=== PATIENT | female | born 1950 | race Caucasian/White ===

== ENCOUNTER → 2020-01-25 | Outpatient (CLI) | payer MEDICARE ==
[~2020-01-25] MED LIST: ASPI81TA45 PO; ESCI20TA PO; HYDR25TA6 PO; LEVO137T3 PO; METO-99 PO; NITR0.4T41 SL; SIMV20TA19 PO; TICA90TA PO
== END | disposition home or self-care (01) ==
LOC: CFH 10:17
PROVIDERS: ATTEND Internal Medicine Cardiovascular Disease
DX: I08.0 Rheumatic disorders of both mitral and aortic valves (principal); I11.9 Hypertensive heart disease without heart failure; I25.810 Atherosclerosis of coronary artery bypass graft(s) without angina pectoris
CPT/HCPCS: 93306

== ENCOUNTER → 2020-01-27 | Outpatient (CLI) | payer MEDICARE ==
[~2020-01-27] MED LIST changes: +REGADENOSON 0.4 MG/5 ML SYRINGE ONE
== END | disposition home or self-care (01) ==
LOC: CFH 07:24
PROVIDERS: ATTEND Internal Medicine Cardiovascular Disease
DX: I25.9 Chronic ischemic heart disease, unspecified (principal); I10 Essential (primary) hypertension; I25.810 Atherosclerosis of coronary artery bypass graft(s) without angina pectoris
CPT/HCPCS: 78452; 93017; A9502; J2785

== ENCOUNTER 2020-03-09 07:35 | Day surgery (SDC) | payer MEDICARE ==
[~2020-03-09] VITALS: Ht 162.6 cm; Wt 78.2 kg
[~2020-03-09 07:35] MED LIST changes: +ISOS30TA8 PO; +LEVO137T2 PO; +NITR0.4T28 SL; -REGADENOSON 0.4 MG/5 ML SYRINGE ONE; +ROSU20TA2 PO
[2020-03-09] MEDS ORDERED: ASPIRIN 325 MG TABLET EC PO ONE (08:00)
[2020-03-09] MEDS ORDERED: ASPI81TA45 PO (08:19)
[2020-03-09 08:23] VITALS: BP 111/70
[2020-03-09] MEDS ORDERED: OMEP10SU2 PO (08:23)
[2020-03-09 08:25] LABS: BASOPHILS # (AUTO) 0.02 x10^3/uL (0-0.1); BASOPHILS % (AUTO) 0 % (0-1); EOSINOPHILS # (AUTO) 0.24 x10^3/uL (0-0.4); EOSINOPHILS % (AUTO) 2 % (1-7); LYMPHOCYTES # (AUTO) 1.52 x10^3/uL (1-3.4); LYMPHOCYTES % (AUTO) 15 % (22-44); MD NO; MEAN CORPUSCULAR HEMOGLOBIN 27.3 pg (27.0-34.8); MEAN CORPUSCULAR HGB CONC 32.7 g/dL (32.4-35.8); MEAN PLATELET VOLUME 8.1 fL (7.4-10.4); MONOCYTES # (AUTO) 0.71 x10^3/uL (0.2-0.8); MONOCYTES % (AUTO) 7 % (2-9); NEUTROPHILS # (AUTO) 7.88 x10^3/uL (1.8-6.8); NEUTROPHILS % (AUTO) 76 % (42-75); PLATELET COUNT 336 x10^3/uL (130-400); RED BLOOD COUNT 4.57 x10^6/uL (3.82-5.3); RED CELL DISTRIBUTION WIDTH 16.7 % (9.6-15.2)
[2020-03-09] MEDS ORDERED: PLEASE ENTER HEIGHT AND WEIGHT MC SCH (08:30)
[2020-03-09 08:33] LABS: ANION GAP 11 mmol/L (5-15); CALCIUM 9.9 mg/dL (8.5-10.1); CHLORIDE 104 mmol/L (98-107); CREATININE 1.12 mg/dL (0.55-1.02)
[2020-03-09] MEDS ORDERED: ASPIRIN 325 MG TABLET EC ONE (08:50)
[2020-03-09] MEDS ORDERED: FENTANYL PF 250 MCG/5ML ONE (09:33)
[2020-03-09] MEDS ORDERED: MIDAZOLAM 1 MG/ML, 5ML ONE (09:33)
[2020-03-09] MEDS ORDERED: NITROGLYCERIN 30 MCG/ML, 20ML VIAL ONE (09:34)
[2020-03-09] MEDS ORDERED: LIDOCAINE 1%, 20ML ONE (09:34)
[2020-03-09] MEDS ORDERED: HEPARIN 1,000 UNITS/ML, 10ML ONE (09:34)
[2020-03-09] MEDS ORDERED: VERAPAMIL 2.5 MG/ML, 2ML ONE (09:34)
[2020-03-09] MEDS ORDERED: BIVALIRUDIN 250 MG ONE (09:40)
[2020-03-09 10:00] LABS: ANION GAP 9 mmol/L (5-15); CALCIUM 9.2 mg/dL (8.5-10.1); CHLORIDE 105 mmol/L (98-107); CREATININE 0.96 mg/dL (0.55-1.02)
[2020-03-09] MEDS ORDERED: SODIUM CHLORIDE 0.9% 1,000 ML IV SCH (10:00)
[2020-03-09] MEDS ORDERED: POTA20TA6 PO (10:12)
== END 2020-03-09 10:28 | disposition home or self-care (01) ==
LOC: CACL 07:35
PROVIDERS: ATTEND Internal Medicine Cardiovascular Disease
DX: I25.810 Atherosclerosis of coronary artery bypass graft(s) without angina pectoris (principal); Z53.8 Procedure and treatment not carried out for other reasons; E87.6 Hypokalemia; I10 Essential (primary) hypertension; E78.00 Pure hypercholesterolemia, unspecified; E03.9 Hypothyroidism, unspecified; F12.10 Cannabis abuse, uncomplicated; Z79.82 Long term (current) use of aspirin; Z79.890 Hormone replacement therapy; Z79.899 Other long term (current) drug therapy; Z88.8 Allergy status to other drugs, medicaments and biological substances
CPT/HCPCS: 36415; 80048; 85025; J0583; J1644; J2250; J3010

== ENCOUNTER 2021-01-05 04:14 | Emergency (ER) | payer MEDICARE ==
[~2021-01-05] VITALS: Ht 162.6 cm; Wt 76.8 kg
[~2021-01-05 04:14] MED LIST changes: -ESCI20TA PO; +ESCI20TA8 PO; +OMEP10SU2 PO; +POTA20TA6 PO
[2021-01-05] MEDS ORDERED: HYDROcodone/APAP 5/325 TABLET PO ONE (05:30)
[2021-01-05] MEDS ORDERED: LIDOCAINE-MPF 1%, 5ML ONE ×2 (06:03→06:04)
[2021-01-05] MEDS ORDERED: HYDROcodone/APAP 5/325 TABLET ONE (06:38)
--- NOTE | 2021-01-05 07:00 | NUR ---
report given to trina sommer
[2021-01-05 07:05] LABS: BASOPHILS % (AUTO) 1 % (0-1); EOSINOPHILS % (AUTO) 1 % (1-7); LYMPHOCYTES % (AUTO) 22 % (22-44); MEAN CORPUSCULAR HGB CONC 32.7 g/dL (32.4-35.8); MEAN PLATELET VOLUME 7.9 fL (7.4-10.4); MONOCYTES % (AUTO) 6 % (2-9); NEUTROPHILS % (AUTO) 71 % (42-75); PLATELET COUNT 281 x10^3/uL (130-400); RED BLOOD COUNT 4.32 x10^6/uL (3.82-5.3); RED CELL DISTRIBUTION WIDTH 17.6 % (9.6-15.2)
[2021-01-05] MEDS ORDERED: NEOSPORIN OINT. PKT 1 PACKET ONE (07:15)
[2021-01-05 07:23] LABS: INTERNATIONAL NORMALIZED RATIO 1.05 (0.93-1.1); PROTHROMBIN TIME 11.2 Seconds (9.6-11.5)
--- NOTE | 2021-01-05 07:44 | NUR ---
report received from ANTHONY Vann. pt a&o, resps even and unlabored, hiwot. wound care performed per MD order, wound dressed with neosporin, adaptic, gauze and coban per MD order. pt has no complaint at this time. pt to receive splint, tdap and dc.
[2021-01-05] MEDS ORDERED: DIPH,PERTUSS(ACELL),TET VAC/PF 0.5 ML IM-VACC ONE ×3 (08:06→08:44)
--- NOTE | 2021-01-05 08:38 | NUR ---
report from ros mena. as
--- NOTE | 2021-01-05 08:40 | NUR ---
REPORT GIVEN AT BEDSIDE TO ANTHONY GARDNER.
[2021-01-05 08:49] VITALS: BP 120/76
== END 2021-01-05 09:56 | disposition home or self-care (01) ==
LOC: ED 07:51
DX: S51.812A Laceration without foreign body of left forearm, initial encounter (principal); I10 Essential (primary) hypertension; E78.5 Hyperlipidemia, unspecified; Z95.1 Presence of aortocoronary bypass graft; X58.XXXA Exposure to other specified factors, initial encounter; Y93.89 Activity, other specified; Y92.009 Unspecified place in unspecified non-institutional (private) residence as the place of occurrence of the external cause; Y99.8 Other external cause status
CPT/HCPCS: 12004; 36415; 85025; 85610; 85730; 90471; 90715

== ENCOUNTER 2021-01-07 09:32 | Emergency (ER) | payer MEDICARE ==
[~2021-01-07] VITALS: Ht 162.6 cm; Wt 75.6 kg
[2021-01-07 09:42] VITALS: BP 112/64
--- NOTE | 2021-01-07 10:00 | NUR ---
wound recheck to Inna ORNELAS. HAD SKIN TEAR FROM [facility] ON THURSDAY AND HAD WOUND SUTURED- WAS TOLD TO PRESENT TODAY FOR RECHECK. SLING, HEAVY DRESSING REMOVED FOR EVAL
[2021-01-07] MEDS ORDERED: BACITRACIN ZINC OINT 500U/GM, 0.9 GM ONE (10:07)
--- NOTE | 2021-01-07 10:14 | NUR ---
WOUND CLEANSED WITH STERILE SALINE, THEN BACITRACIN APPLIED, THEN XEROFORM, THEN AUZE, THEN KERLIX THEN CONAD. POST DRESSING CMS INTACT
--- NOTE | 2021-01-07 10:38 | NUR ---
Patient given discharge instructions and they have confirmed that they understand the instructions. Patient ambulatory with steady gait.
== END 2021-01-07 10:39 | disposition home or self-care (01) ==
LOC: ED 10:30
DX: S51.812D Laceration without foreign body of left forearm, subsequent encounter (principal); Z48.01 Encounter for change or removal of surgical wound dressing; I10 Essential (primary) hypertension; I25.2 Old myocardial infarction; E78.5 Hyperlipidemia, unspecified; X58.XXXD Exposure to other specified factors, subsequent encounter
CPT/HCPCS: 99282

== ENCOUNTER 2021-01-09 13:43 | Emergency (ER) | payer MEDICARE ==
[~2021-01-09] VITALS: Ht 162.6 cm; Wt 75.0 kg
[2021-01-09 13:48] VITALS: BP 136/75
--- NOTE | 2021-01-09 14:10 | NUR ---
BLAIR EGAN AT BEDSIDE FOR EVAL
--- NOTE | 2021-01-09 14:13 | NUR ---
REPORT TO ÁLVARO CRUZ
--- NOTE | 2021-01-09 14:59 | NUR ---
stitches redressed, pt given supplies and eductation for at home wound care. discharge instructions reviewed, pt verbalized undertsanding. ambulatory to discharge desk with steady gait.
[2021-01-09] MEDS ORDERED: DIPH,PERTUSS(ACELL),TET VAC/PF 0.5 ML IM-VACC ONE (15:00)
== END 2021-01-09 15:01 | disposition home or self-care (01) ==
LOC: ED 14:50
DX: L03.114 Cellulitis of left upper limb (principal); S51.012D Laceration without foreign body of left elbow, subsequent encounter; I25.2 Old myocardial infarction; I10 Essential (primary) hypertension; E78.5 Hyperlipidemia, unspecified; X58.XXXD Exposure to other specified factors, subsequent encounter
CPT/HCPCS: 99283